=== PATIENT | female | born 1940 | race Caucasian/White ===

== ENCOUNTER 2018-03-30 07:39 | Day surgery (SDC) | payer BC ==
[~2018-03-30] VITALS: Ht 157.5 cm; Wt 55.2 kg
[2018-03-30] VITALS (11 sets, daily range): BP systolic 118–138; BP diastolic 50–68
[2018-03-30] MEDS ORDERED: sod bicarbonate 150mEq in D5W 1,150 ML IV ONE (08:10)
[2018-03-30] MEDS ORDERED: diphenhydrAMINE 25mg capsule PO PRN (08:10)
[2018-03-30] MEDS ORDERED: SIMV40TA PO (08:29)
[2018-03-30] MEDS ORDERED: METF-436 PO (08:29)
[2018-03-30] MEDS ORDERED: LEVO75TA PO (08:29)
[2018-03-30] MEDS ORDERED: PIOG30TA28 PO (08:29)
[2018-03-30] MEDS ORDERED: RAMI5CAP65 PO (08:29)
[2018-03-30] MEDS ORDERED: ASPI-1265 PO (08:29)
[2018-03-30] MEDS ORDERED: GLIM2TAB2 PO (08:29)
[2018-03-30] MEDS ORDERED: MULT-38 PO (08:29)
[2018-03-30 09:19] LABS: BASOPHILS % (AUTO) 0.5 % (0-1); EOSINOPHILS # (AUTO) 0.1 X10'3 (0-0.9); EOSINOPHILS % (AUTO) 2.4 % (0-6); HEMATOCRIT 31.1 % (35.0-45.0); HEMOGLOBIN 10.2 g/dl (12.0-16.0); LYMPHOCYTES # (AUTO) 0.8 X10'3 (1.1-4.8); LYMPHOCYTES % (AUTO) 17.2 % (21-51); MEAN CORPUSCULAR HEMOGLOBIN 30.4 PG (27.0-31.0); MEAN CORPUSCULAR HGB CONC 32.7 % (33.0-36.5); MEAN CORPUSCULAR VOLUME 92.8 FL (78-98); MONOCYTES # (AUTO) 0.4 X10'3 (0-0.9); MONOCYTES % (AUTO) 9.5 % (2-12); NEUTROPHILS # (AUTO) 3.2 X10'3 (1.8-7.7); NEUTROPHILS % (AUTO) 70.4 % (42-75); PLATELET COUNT 288 X10'3 (140-440); RED BLOOD COUNT 3.35 X10'6 (4.20-5.60); RED CELL DISTRIBUTION WIDTH 14.4 % (11.5-14.5); WHITE BLOOD COUNT 4.5 X10'3 (4.5-11.0)
[2018-03-30] MEDS ORDERED: iohexol 350MG/ML 100ml bottle IV ONE ×2 (09:26→10:28)
[2018-03-30] MEDS ORDERED: LIDOcaine 1% 30ml preserv. free vial ONE (09:26)
[2018-03-30] MEDS ORDERED: fentaNYL/PF 50MCG/1 ML 2ML syringe ONE (09:26)
[2018-03-30] MEDS ORDERED: iohexol 350 MG/ML 50ML vial IV ONE (09:26)
[2018-03-30] MEDS ORDERED: midazolam 2 mg/2 ml injection ONE (09:26)
[2018-03-30 09:31] LABS: ALBUMIN 3.2 G/DL (3.4-5.0); ANION GAP 7 (8-16); BLOOD UREA NITROGEN 20 MG/DL (7-18); BUN/CREATININE RATIO 21.3 (6.6-38.0); CALCIUM 9.4 MG/DL (8.5-10.1); CHLORIDE 107 MMOL/L (99-107); CREATININE 0.94 MG/DL (0.40-0.90); GLUCOSE 93 MG/DL (70-104); MAGNESIUM 1.3 MG/DL (1.5-2.4); POTASSIUM 4.8 MMOL/L (3.5-5.1); SODIUM 140 MMOL/L (135-145); TOTAL CARBON DIOXIDE 26.5 MMOL/L (24-32); eGFR 57 ML/MIN
[2018-03-30 09:32] LABS: PROTHROMBIN TIME 10.1 SECONDS (9.0-12.0)
[2018-03-30] MEDS ORDERED: heparin 1,000unit/ml 10ml vial 10 ML ONE (10:13)
[2018-03-30] MEDS ORDERED: clopidogrel 300mg tablet ONE (10:42)
[2018-03-30] MEDS ORDERED: normal saline 1000ml 1,000 ML IV SCH (14:00)
== END 2018-03-30 15:15 | disposition home or self-care (01) ==
LOC: SSTAY O 07:39
PROVIDERS: ATTEND Internal Medicine Cardiovascular Disease
DX: I25.118 Atherosclerotic heart disease of native coronary artery with other forms of angina pectoris (principal); E11.9 Type 2 diabetes mellitus without complications; I10 Essential (primary) hypertension; E78.5 Hyperlipidemia, unspecified; M81.0 Age-related osteoporosis without current pathological fracture; M19.90 Unspecified osteoarthritis, unspecified site; E03.9 Hypothyroidism, unspecified; H91.8X3 Other specified hearing loss, bilateral; J45.998 Other asthma; Z86.2 Personal history of diseases of the blood and blood-forming organs and certain disorders involving the immune mechanism; Z88.6 Allergy status to analgesic agent; Z90.49 Acquired absence of other specified parts of digestive tract; Z98.41 Cataract extraction status, right eye; Z98.42 Cataract extraction status, left eye; Z90.13 Acquired absence of bilateral breasts and nipples; Z92.21 Personal history of antineoplastic chemotherapy; Z86.19 Personal history of other infectious and parasitic diseases; Z88.1 Allergy status to other antibiotic agents; Z92.3 Personal history of irradiation; Z79.82 Long term (current) use of aspirin; Z79.84 Long term (current) use of oral hypoglycemic drugs; Z85.3 Personal history of malignant neoplasm of breast; Z90.89 Acquired absence of other organs; Z98.890 Other specified postprocedural states; Z79.899 Other long term (current) drug therapy; Z88.8 Allergy status to other drugs, medicaments and biological substances
CPT/HCPCS: 36415; 80048; 83735; 85025; 85347; 85610; 93005; 93458; 99152; 99153; A6257; C1760; C1874; C9600; J1644; J2250; J3010; J3490; J7030; Q0163; Q9967; A4620; C1725; C1769; C1894

== ENCOUNTER 2018-04-01 08:57 | Emergency (ER) | payer BC ==
[~2018-04-01] VITALS: Ht 157.5 cm; Wt 50.0 kg
[~2018-04-01 08:57] MED LIST: ASPI-1265 PO; GLIM2TAB2 PO; LEVO75TA PO; METF-436 PO; MULT-38 PO; PIOG30TA28 PO; RAMI5CAP65 PO; SIMV40TA PO
[2018-04-01 09:01] VITALS: BP 116/50
[2018-04-01] MEDS ORDERED: diphenhydrAMINE 25mg capsule PO ONE (09:15)
[2018-04-01] MEDS ORDERED: methylPREDNISolone acetate 80mg/ml inj**IM only IM ONE (09:15)
[2018-04-01] MEDS ORDERED: methylPREDNISolone sod succ 125mg/2ml vial IM ONE (09:35)
[2018-04-01] MEDS ORDERED: METH4TAB3 PO (10:23)
[2018-04-01] MEDS ORDERED: TICA90TA PO (10:23)
== END 2018-04-01 10:36 | disposition home or self-care (01) ==
LOC: ER 08:57
DX: L50.9 Urticaria, unspecified (principal); T45.525A Adverse effect of antithrombotic drugs, initial encounter; T47.1X5A Adverse effect of other antacids and anti-gastric-secretion drugs, initial encounter; Z88.1 Allergy status to other antibiotic agents; Z88.8 Allergy status to other drugs, medicaments and biological substances; Z79.82 Long term (current) use of aspirin; Z79.899 Other long term (current) drug therapy; Y92.89 Other specified places as the place of occurrence of the external cause
CPT/HCPCS: 96372; 99284; J2930; Q0163; J1040

== ENCOUNTER 2020-06-26 10:52 | Day surgery (SDC) | payer BC ==
[~2020-06-26] VITALS: Ht 157.5 cm; Wt 56.2 kg
[2020-06-26] VITALS (9 sets, daily range): BP systolic 120–139; BP diastolic 43–62
[~2020-06-26 10:52] MED LIST changes: -GLIM2TAB2 PO; +GLIM2TAB6 PO; +METH4TAB3 PO; -PIOG30TA28 PO; +PIOG30TA72 PO; +TICA90TA PO
[2020-06-26] MEDS ORDERED: ceFAZolin 2gm in dextrose, iso 50 ML IV ONE (11:40)
[2020-06-26] MEDS ORDERED: normal saline 1000ml 1,000 ML IV SCH ×2 (11:40→15:00)
[2020-06-26 12:17] LABS: BASOPHILS % (AUTO) 0.6 % (0-1); EOSINOPHILS # (AUTO) 0.1 X10'3 (0-0.9); EOSINOPHILS % (AUTO) 1.9 % (0-6); HEMATOCRIT 27.9 % (35.0-45.0); HEMOGLOBIN 9.3 g/dl (12.0-16.0); LYMPHOCYTES # (AUTO) 0.6 X10'3 (1.1-4.8); LYMPHOCYTES % (AUTO) 12.5 % (21-51); MEAN CORPUSCULAR HGB CONC 33.3 g/dL (33.0-36.5); MEAN CORPUSCULAR VOLUME 96.1 FL (78-98); MONOCYTES # (AUTO) 0.4 X10'3 (0-0.9); MONOCYTES % (AUTO) 8.3 % (2-12); NEUTROPHILS # (AUTO) 3.9 X10'3 (1.8-7.7); NEUTROPHILS % (AUTO) 76.7 % (42-75); PLATELET COUNT 202 X10'3 (140-440); RED CELL DISTRIBUTION WIDTH 14.7 % (11.5-14.5)
[2020-06-26] MEDS ORDERED: AMA1T PO ×2 (12:22)
[2020-06-26] MEDS ORDERED: ROSU20TA2 PO (12:25)
[2020-06-26] MEDS ORDERED: SITA25TA3 PO (12:27)
[2020-06-26] MEDS ORDERED: CALC500T11 PO (12:27)
[2020-06-26] MEDS ORDERED: PIOG15TA8 PO (12:27)
[2020-06-26 12:42] LABS: ALANINE AMINOTRANSFERASE 27 U/L (12-78); ALBUMIN 3.3 G/DL (3.4-5.0); ALBUMIN/GLOBULIN RATIO 0.8 (1.1-1.5); ALKALINE PHOSPHATASE 81 IU/L (46-116); ANION GAP 11 (8-16); ASPARTATE AMINO TRANSFERASE 25 U/L (10-37); BILIRUBIN,DIRECT 0.1 MG/DL (0-0.3); BILIRUBIN,TOTAL 0.2 MG/DL (0.1-1.0); BLOOD UREA NITROGEN 45 MG/DL (7-18); BUN/CREATININE RATIO 37.2 (6.6-38.0); CALCIUM 9.2 MG/DL (8.5-10.1); CHLORIDE 107 MMOL/L (99-107); CREATININE 1.21 MG/DL (0.40-0.90); GLUCOSE 91 MG/DL (70-104); MAGNESIUM 1.7 MG/DL (1.5-2.4); POTASSIUM 5.2 MMOL/L (3.5-5.1); SODIUM 142 MMOL/L (135-145); TOTAL CARBON DIOXIDE 23.6 MMOL/L (24-32); TOTAL PROTEIN 7.5 G/DL (6.4-8.2); eGFR 43 ML/MIN
[2020-06-26] MEDS ORDERED: LIDOcaine 1% W/epiNEPHrine 1:100,000 20ml vial ONE (13:11)
[2020-06-26] MEDS ORDERED: midazolam 2 mg/2 ml injection ONE (13:11)
[2020-06-26] MEDS ORDERED: fentaNYL/PF 50MCG/1 ML 2ML syringe ONE (13:11)
[2020-06-26] MEDS ORDERED: ceFAZolin 1000mg inj ONE (13:11)
[2020-06-26] MEDS ORDERED: HYDROcodone/acetaminophen 10/325mg tab PO PRN (15:00)
[2020-06-26] MEDS ORDERED: HYDROcodone/acetaminophen 5mg/325mg tablet PO PRN (15:00)
== END 2020-06-26 17:30 | disposition home or self-care (01) ==
LOC: SSTAY O 10:52
PROVIDERS: ATTEND Internal Medicine Cardiovascular Disease
DX: I49.5 Sick sinus syndrome (principal); I73.9 Peripheral vascular disease, unspecified; I10 Essential (primary) hypertension; E11.9 Type 2 diabetes mellitus without complications; E78.5 Hyperlipidemia, unspecified
CPT/HCPCS: 33208; 36415; 71045; 80048; 80076; 82948; 83735; 85025; 85610; 93005; 99152; 99153; C1785; C1894; C1898; J0690; J2250; J3010; A4565; A4620; A6258

== ENCOUNTER 2024-01-05 09:30 | Day surgery (SDC) | payer BC ==
[~2024-01-05] VITALS: Ht 157.5 cm; Wt 52.7 kg
[2024-01-05 08:43] VITALS: BP 115/60; PULSE 82; RESP 15
[~2024-01-05 09:30] MED LIST changes: +CALC500T11 PO; +CENTRUM VITAMIN; +FISH OIL PO; +GLIM1TAB57 PO; -GLIM2TAB6 PO; +METF-1203 PO; -METF-436 PO; -METH4TAB3 PO; +PIOG15TA8 PO; -PIOG30TA72 PO; -RAMI5CAP65 PO; +RAMI5CAP71 PO; +ROSU20TA2 PO; -SIMV40TA PO; +SITA25TA3 PO; -TICA90TA PO; +simethicone 40mg/0.6ml oral drops 30ml ONE
[2024-01-05] MEDS ORDERED: LIDOcaine 2% Viscous 15ml cup ONE (10:05)
[2024-01-05] MEDS ORDERED: MIDAZolam 1 MG/ML 5ML VIAL ONE (10:09)
[2024-01-05] MEDS ORDERED: fentaNYL/PF 50MCG/1 ML 2ML syringe ONE (10:09)
[2024-01-05 11:00] VITALS: BP 100/51; PULSE 69; RESP 11; O2SAT 95
[2024-01-05 11:10] VITALS: BP 117/53; PULSE 72; RESP 12; O2SAT 95
[2024-01-05 11:20] VITALS: BP 111/52; PULSE 72; RESP 16; O2SAT 95
[2024-01-05 11:30] VITALS: BP 114/55; PULSE 68; RESP 16; O2SAT 95
== END 2024-01-05 11:50 | disposition home or self-care (01) ==
LOC: GI LAB 09:30
PROVIDERS: ATTEND Internal Medicine Gastroenterology
DX: D50.0 Iron deficiency anemia secondary to blood loss (chronic) (principal); K63.5 Polyp of colon; K64.8 Other hemorrhoids; K21.00 Gastro-esophageal reflux disease with esophagitis, without bleeding; K44.9 Diaphragmatic hernia without obstruction or gangrene; K25.9 Gastric ulcer, unspecified as acute or chronic, without hemorrhage or perforation
CPT/HCPCS: 43239; 45380; 45385; 99152; 99153; J2250; J3010; J7030; Z7512; A4620; C1889

== ENCOUNTER 2024-02-26 08:42 | Day surgery (SDC) | payer BC ==
[~2024-02-26] VITALS: Ht 154.9 cm; Wt 50.0 kg
[~2024-02-26 08:42] MED LIST changes: -GLIM1TAB57 PO; +GLYB2.5T4 PO; +MULT-1085 PO; -MULT-38 PO; +OMEP40CA21 PO; -simethicone 40mg/0.6ml oral drops 30ml ONE
[2024-02-26 08:59] VITALS: BP 135/71; PULSE 74; RESP 16
[2024-02-26] MEDS ORDERED: GLIM2TAB6 PO (09:06)
[2024-02-26] MEDS ORDERED: simethicone 40mg/0.6ml oral drops 30ml ONE (09:40)
[2024-02-26] MEDS ORDERED: LIDOcaine 2% Viscous 15ml cup ONE (09:51)
[2024-02-26] MEDS ORDERED: MIDAZolam 1 MG/ML 5ML VIAL ONE (10:04)
[2024-02-26] MEDS ORDERED: fentaNYL/PF 50MCG/1 ML 2ML syringe ONE (10:04)
[2024-02-26 10:20] VITALS: BP 131/60; PULSE 66; RESP 14; O2SAT 95
[2024-02-26 10:30] VITALS: BP 127/60; PULSE 66; RESP 14; O2SAT 96
[2024-02-26 10:40] VITALS: BP 130/61; PULSE 64; RESP 13; O2SAT 95
[2024-02-26 10:50] VITALS: BP 146/65; PULSE 73; RESP 16; O2SAT 98
== END 2024-02-26 10:59 | disposition home or self-care (01) ==
LOC: GI LAB 08:42
PROVIDERS: ATTEND Internal Medicine Gastroenterology
DX: K25.0 Acute gastric ulcer with hemorrhage (principal); K29.50 Unspecified chronic gastritis without bleeding; K44.9 Diaphragmatic hernia without obstruction or gangrene; K31.89 Other diseases of stomach and duodenum
CPT/HCPCS: 43239; 99152; A4620; J2250; J3010; J7030